=== PATIENT | male | born 1980 | race Caucasian/White ===

== ENCOUNTER 2024-02-12 22:01 | Emergency (ER) | payer MEDICAID ==
[~2024-02-12] VITALS: Ht 190.5 cm; Wt 97.7 kg
[2024-02-12 22:41] LABS: BASOPHILS % (AUTO) 0.2 % (0-1); EOSINOPHILS # (AUTO) 0.2 X10'3 (0-0.9); EOSINOPHILS % (AUTO) 2.7 % (0-6); HEMATOCRIT 48.4 % (42.0-52.0); HEMOGLOBIN 16.4 g/dl (14.0-17.9); LYMPHOCYTES # (AUTO) 2.5 X10'3 (1.1-4.8); LYMPHOCYTES % (AUTO) 29.2 % (21-51); MEAN CORPUSCULAR HEMOGLOBIN 32.1 PG (27.0-31.0); MEAN CORPUSCULAR VOLUME 94.4 FL (78-98); MEAN PLATELET VOLUME 8.3 FL (7.4-10.4); MONOCYTES # (AUTO) 0.7 X10'3 (0-0.9); MONOCYTES % (AUTO) 7.6 % (2-12); NEUTROPHILS # (AUTO) 5.2 X10'3 (1.8-7.7); NEUTROPHILS % (AUTO) 60.3 % (42-75); PLATELET COUNT 286 X10'3 (140-440); RED BLOOD COUNT 5.13 X10'6 (4.70-6.10); RED CELL DISTRIBUTION WIDTH 13.7 % (11.5-14.5); WHITE BLOOD COUNT 8.6 X10'3 (4.5-11.0)
[2024-02-12] MEDS ORDERED: NO HOME MEDS (22:55)
[2024-02-12 22:59] LABS: ALBUMIN 4.1 G/DL (3.4-5.0); ANION GAP 10 (8-16); BLOOD UREA NITROGEN 16 MG/DL (7-18); BUN/CREATININE RATIO 13.7 (10.0-20.0); CALCIUM 8.5 MG/DL (8.5-10.1); CHLORIDE 106 MMOL/L (99-107); CREATININE 1.17 MG/DL (0.60-1.10); ETHANOL 49 MG/DL (<10); GLUCOSE 130 MG/DL (70-104); POTASSIUM 3.7 MMOL/L (3.5-5.1); SODIUM 142 MMOL/L (135-145); THYROID STIMULATING HORMONE 1.75 ulU/ml (0.34-4.50); TOTAL CARBON DIOXIDE 26.3 MMOL/L (24-32); eCRCL 99 ML/MIN; eGFR 69 ML/MIN
[2024-02-12] MEDS: diphenhydrAMINE 25mg capsule PO ONE (23:28)
[2024-02-12] MEDS: Melatonin 3mg tablet PO SCH (23:29)
[2024-02-13] MEDS ORDERED: ondansetron 4mg rapidly disintigrating tab PO SCH
[2024-02-13] MEDS: LORazepam 1 MG tablet PO PRN (03:58)
[2024-02-13] MEDS: ondansetron 4mg rapidly disintigrating tab PO PRN (03:59)
[2024-02-13 09:07] LABS: BILIRUBIN,URINE NEGATIVE (Neg); CLARITY,URINE CLOUDY (Clear); COLOR,URINE YELLOW (Yellow); GLUCOSE, URINE NEGATIVE (Neg); KETONES,URINE TRACE mg/dl (Neg); LEUKOCYTE ESTERASE ,URINE NEGATIVE (Neg); NITRITES, URINE NEGATIVE (Neg); OCCULT BLOOD,URINE NEGATIVE (Neg); PH,URINE 6.5 (4.8-8.0); PROTEIN,URINE 30 mg/dl (Neg); UROBILINOGEN,URINE 0.2 E.U/dL (0.2-1.0)
[2024-02-13 09:23] LABS: MUCUS STRANDS FEW /LPF (Neg); UA COLLECTION TYPE CLN CATCH MIDSTREAM
[2024-02-13 09:24] LABS: AMORPHOUS URATES 3+; SQUAMOUS EPITHELIAL CELL,UR FEW /LPF (FEW)
[2024-02-13 09:25] LABS: WBC,URINE 0-4 /HPF (0-4)
[2024-02-13 09:26] LABS: SPERM FEW /HPF (NEGATIVE)
[2024-02-13 09:27] LABS: BACTERIA,URINE NONE SEEN /HPF (Neg); RBC,URINE NONE SEEN /HPF (0-2)
[2024-02-13 09:32] LABS: URINE AMPHETAMINE SCREEN POSITIVE (Neg); URINE BARBITUATE SCREEN NEGATIVE (Neg); URINE BENZODIAZEPINES SCREEN NEGATIVE (Neg); URINE CANNABINOID SCREEN NEGATIVE (Neg); URINE COCAINE SCREEN NEGATIVE (Neg); URINE METHADONE SCREEN NEGATIVE (Neg); URINE OPIATE SCREEN NEGATIVE (Neg); URINE PHENCYCLIDINE SCREEN NEGATIVE (Neg)
[2024-02-13] MEDS: chlordiazePOXIDE 25mg capsule PO ONE (11:02)
[2024-02-13] MEDS ORDERED: CHLO25CA10 PO (11:08)
[2024-02-13 12:34] VITALS: BP 142/84; PULSE 99; RESP 16; TEMP 98.5; O2SAT 99
[2024-02-13] MEDS ORDERED: Melatonin 3mg tablet PO SCH (21:00)
== END 2024-02-13 12:04 | disposition home or self-care (01) ==
LOC: ER 22:02
DX: R45.851 Suicidal ideations (principal); Z20.822 Contact with and (suspected) exposure to COVID-19; F10.20 Alcohol dependence, uncomplicated; Y90.9 Presence of alcohol in blood, level not specified
CPT/HCPCS: 36415; 80048; 80305; 80320; 81001; 84443; 85025; 87811; 99284; Q0163